=== PATIENT | female | born 1930 | race Caucasian/White ===

== ENCOUNTER 2017-10-17 09:15 | Inpatient (IN) | payer MEDICARE ==
[2017-10-17 10:12] LABS: #Basophils 0.1 thou/uL (0.0-0.2); #Eosinphils 0.2 thou/uL (0.0-0.7); #Lymphocytes 2.1 thou/uL (1.20-3.40); #Monocytes 0.9 thou/uL (0.11-0.59); %Basophils 0.7 % (0.0-1.0); %Lymphocytes 22.2 % (21.0-51.0); %Neutrophils 65.1 % (42.0-75.0); Mean Corpuscular Hemoglobin 30.4 pg (27.0-31.0); Mean Corpuscular Volume 89.5 fL (78.0-98.0); Mean Platelet Volume 8.7 fL (7.4-10.4); Platelet Count 249 thou/uL (130-400); RBC Distribution Width 13.8 % (11.5-14.5); Red Blood Cell (RBC) Count 4.94 mill/uL (4.20-5.40); White Blood Cell (WBC) Count 9.3 thou/uL (4.8-10.8)
--- NOTE | 2017-10-17 10:17 | RAD ---
PORTABLE CHEST 1 VIEW: DATE: 10/17/17. TIME: 10:06 a.m. HISTORY: Chest pain. FINDINGS/IMPRESSION: The heart size is borderline. There is a plate of linear atelectasis in the left mid lung laterally. The lungs are well expanded without lobar consolidation, pneumothoraces, zelalem pulmonary edema, or pleural effusions. POS: BRITTANIH
[2017-10-17 10:40] LABS: CKMB 0.6 ng/mL (0-6.6); Troponin I Less than 0.010 ng/mL (< 0.028)
[2017-10-17 11:25] LABS: Albumin 4.5 g/dL (3.4-4.8)
[2017-10-17 11:26] LABS: Calcium 10.3 mg/dL (7.8-10.44); Chloride 107 mmol/L (98-107); Magnesium 2.3 mg/dL (1.6-2.6); Potassium 3.8 mmol/L (3.5-5.1); Sodium 140 mmol/L (136-145)
[2017-10-17 11:27] LABS: Globulin 2.8 g/dL (2.4-3.5); Glucose 115 mg/dL (83-110); Protein, Total 7.3 g/dL (6.0-8.3)
[2017-10-17 11:29] LABS: Anion Gap 16 mmol/L (10-20); Carbon Dioxide 21 mmol/L (23-31)
[2017-10-17 11:30] LABS: Alkaline Phosphatase 86 U/L (40-150); Calc. Creatinine Clearance 0 mL/min (70-130); Estimated GFR-MDRD 57
[2017-10-17 11:31] LABS: BUN (Urea Nitrogen) 22 mg/dL (9.8-20.1)
[2017-10-17 11:32] LABS: AST (SGOT) 14 U/L (5-34)
[2017-10-17 11:33] LABS: ALT (SGPT) 13 U/L (8-55); CK (CPK) 34 U/L (29-168); Lipase 56 U/L (8-78)
--- NOTE | 2017-10-17 14:05 | HP-2 ---
DATE OF ADMISSION: 10/17/2017 CODE STATUS: DNR. Code status was discussed at length with the patient who is competent to make dec isions at this time. She expressed desire for no resuscitative measures to be taken in the event of cardiac or respiratory arrest. PRIMARY CARE PHYSICIAN: Dr. Darien Garcia at [facility]. RESIDENT: Smith Pandey M.D. ATTENDING PHYSICIAN: Lino Pizano M.D. CHIEF COMPLAINT: Back pain. HISTORY OF PRESENT ILLNESS: Ms. Aldana is a pleasant 87-year-old female with past medical history of hypertension, chronic back pain, irritable bowel syndrome. She presented from Dr. Rosanna weaver's office this morning with a report of elevated pulse. The patient states she was going for an epidural spinal injection to control her chronic back pain when she was found to have an elevated pul se. She explicitly denied shortness of breath, chest pain, palpitations, generalized weakness, nause a or vomiting. She states that she was seen by Dr. Ledezma approximately 4 years ago and had an ex tensive cardiac workup done at that time which was negative. She states that she has had an "abnorma l heart beat" since she was in the fifth grade. She states her chronic back pain is caused by a fall from standing she experienced when she was 19 years old and has been getting injections for the past 16 years. ER COURSE: The patient was seen and evaluated by Dr. James Finch. Routine labs were drawn including m agnesium, EKG and chest x-ray were obtained. She received diltiazem 20 mg IV push and started on a d iltiazem drip which was still being titrated in the ER at the time of my examination. She was receiv ing diltiazem at 10 mg per hour at the time of the examination. PAST MEDICAL HISTORY: 1. Irritable bowel syndrome. 2. Hypertension. 3. Chronic back pain. PAST SURGICAL HISTORY: 1. Appendectomy. 2. Nephrectomy. 3. Unspecified hand surgery. ALLERGIES: No known drug allergies. MEDICATIONS: The patient states she takes valsartan, diltiazem XLT and amlodipine. She does not kno w the dosing of her home medication. FAMILY HISTORY: She reports her father of a myocardial infarction at age 65 and her mother of Alzheimer's at 87 years old. SOCIAL HISTORY: The patient reports a remote 5-6 pack year smoking history, but states she quit torsten ral decades ago. She denies alcohol or illicit drug use. She states that her son lives with her in her home and that she is are able to achieve all ADLs and IADLs. REVIEW OF SYSTEMS GENERAL: Denies fevers or chills. EYES: Denies blurry vision, double vision. ENT: Denies sore throat, nasal congestion. NECK: Denies lumps or mass. CARDIOVASCULAR: Denies chest pain, palpitations or edema. PULMONARY: Denies shortness of breath or dyspnea on exertion. GASTROINTESTINAL: Denies nausea, vomiting, diarrhea, constipation. GENITOURINARY: Denies incontinence, dysuria. MUSCULOSKELETAL: Reports chronic back pain and left leg pain. NEUROLOGIC: Reports weakness secondary to pain. Denies numbness, tingling. SKIN: Denies suspicious lesions or rashes. PSYCHIATRIC: Denies anxiety, depression. PHYSICAL EXAMINATION: VITAL SIGNS: Blood pressure 149/128, pulse 135, respiratory rate 18, T-max 97.6 oral, pulse ox 97% o n room air, current weight 61.23 kilograms. GENERAL: No acute distress. Alert and oriented x4, appropriately interactive. HEENT: Normocephalic, atraumatic. PERRLA, EOMI. Conjunctivae within normal limits. External ears and nose grossly normal. Oropharynx reveals wheezing. Moist mucous membranes. Normal posterior donna pharynx, symmetric elevation of the soft palate. NECK: Supple, without lymphadenopathy, thyromegaly. CARDIOVASCULAR: Tachycardic rate, irregularly irregular rhythm. Pulses full and equal bilaterally. No murmurs, rubs or gallops appreciated. LUNGS: Clear to auscultation bilaterally without wheezes, rhonchi or rales. Normal respiratory effo rt. ABDOMEN: Soft, nontender to palpation. Bowel sounds present x4 quadrants. MUSCULOSKELETAL: Full range of motion of extremities. NEUROLOGIC: No focal deficits. Cranial nerves II-XII grossly intact. EXTREMITIES: No clubbing, cyanosis or edema. SKIN: Warm, dry, and intact without lesions. PSYCHIATRIC: Mood and affect are appropriate. The patient is capable of making her own decisions. LABORATORY DATA: 1. CBC: White blood cell count 9.3, hemoglobin 15.0, hematocrit 44.2, MCV 89.5, platelet count 249, neutrophils 65.1%. 2. CMP: Sodium 140, potassium 3.8, chloride 107, bicarbonate 21, BUN 22, creatinine 0.94, estimated GFR 57, glucose 115, calcium 10.3, magnesium 2.3, total bilirubin 1.0, AST 14, ALT 13, alkaline phos phatase 86. 3. Total protein 7.3, albumin 4.5, globulin 2.6. 4. Cardiac markers, CK-MB 0.6, troponin I less than 0.010. CPK 34, lipase 56, BNP 100.5, TSH 2.6901 . IMAGING: Chest x-ray, left-sided atelectasis, but otherwise unremarkable. EKG: Rate 120, rhythm atrial fibrillation with rapid ventricular response, no ST elevations or depre ssions, normal T-wave progression. QTC interval 472. ASSESSMENT AND PLAN: Ms. Aldana is an 87-year-old female with past medical history of hypertension, chronic back pain, IBS, and an unspecified heart palpitation. She presents with no cardiac complaint s, but was found to be in atrial fibrillation with rapid ventricular response. 1. Suspected new onset atrial fibrillation with rapid ventricular response. We will continue to tit rate diltiazem drip in the ER until pulse is less than 110 and will continue on the floor. We will n eed to perform medication reconciliation and determine the patient's home medication regimen. Cardio logy has been consulted for further recommendations. We will repeat troponin and CK-MB once she is o n the floor to monitor for signs of ischemia. Transthoracic echocardiogram has been ordered. We wi ll await further recommendations from Cardiology. A release of records form will be sent to Dr. Snow navarro's office to review previous evaluations. 2. Hypertension, medication reconciliation and home medications. 3. Chronic back pain. We will provide p.r.n. pain medications. 4. Diet: Heart healthy, regular. 5. Deep venous thrombosis prophylaxis, Lovenox. 6. Code status: DNR. Again, the patient was determined to be decisional and a detailed discussion was had with her regarding her code status. DISPOSITION/ESTIMATED LENGTH OF STAY: She is admitted under inpatient status placed on telemetry win g. Stay likely greater than 2 midnights. History and physical exam and management of this patient were discussed with Dr. Pizano who is in a greement unless otherwise stated in his note.
[2017-10-17] MEDS ORDERED: Bisacodyl 10 MG SUPP PR PRN (16:13)
[2017-10-17] MEDS ORDERED: Acetaminophen 650 MG Suppository PR PRN (16:13)
[2017-10-17] MEDS ORDERED: Acetaminophen 325 MG TAB PO PRN (16:13)
[2017-10-17] MEDS ORDERED: Ondansetron ODT 4 MG TAB PO PRN (16:13)
[2017-10-17] MEDS ORDERED: Diltiazem 125 MG in Sodium Chloride 0.9% 100 ML IVPB SCH ×2 (16:13→17:30)
[2017-10-17] MEDS ORDERED: Bisacodyl 5 MG TAB PO PRN (16:13)
[2017-10-17] MEDS ORDERED: Ondansetron HCl/PF 4 MG/2 ML Vial IVP PRN (16:13)
[2017-10-17] MEDS ORDERED: Enoxaparin Sodium 40 MG/0.4 ML SYRINGE SC SCH (16:45)
[2017-10-17 16:58] LABS: CKMB 0.6 ng/mL (0-6.6); Troponin I Less than 0.010 ng/mL (< 0.028)
[2017-10-17] MEDS: traMADol HCl 50 MG TAB PO PRN (17:26)
--- NOTE | 2017-10-17 18:04 | HP ---
I have discussed the case with Dr. Smith Pandey and agree with his assessment and plan. HISTORY OF PRESENT ILLNESS: Briefly, Ms. Aldana is a very pleasant 87-year-old white female, who was visiting her pain doctor today. When she went in, vital signs were taken. She was noted to have a heart rate of 140. She was sent to our ER where she was noted to be in atrial fibrillation with rapi d ventricular response. She denies any chest pain. She does state she has mild dyspnea on exertion. She is not dizzy. PHYSICAL EXAMINATION: VITAL SIGNS: Her blood pressure 146/80, heart rate is currently 140 and irregularly irregular. Her oxygen saturation is 97% on room air and she is afebrile. GENERAL: She is awake, alert, very pleasant, in no distress. Again, she denies any chest pain. ENT: Her thyroid is not enlarged. There were no carotid bruits. CARDIAC: The PMI is in the fifth intercostal space. Heart rhythm is irregular with a rate of 130-14 0. LUNGS: Breath sounds are slightly diminished, but clear without rales, rhonchi, or wheezes. ABDOMEN: Flat and soft, without guarding or rebound. EXTREMITIES: She has no edema. NEUROLOGIC: No focal deficits. LABORATORY DATA: I have been kicked out by the computer and cannot find my way back to this patient, so I will try to get that later. Her EKG does show atrial fibrillation with a rapid ventricular response. No acute changes noted. ASSESSMENT: Atrial fibrillation with rapid ventricular response. PLAN: Admit on diltiazem drip. Consult Cardiology. Check echo. Check TSH and proceed.
--- NOTE | 2017-10-17 19:02 | CON ---
DATE OF CONSULTATION: 10/17/2017 REASON FOR CONSULTATION: Atrial fibrillation. HISTORY OF PRESENT ILLNESS: Ms. Aldana is a pleasant 87-year-old woman who is a patient who has been seen and evaluated by Dr. Ledezma 4 years ago. She recently presented for a back injection and was found to be tachycardic. She was found to be in AFib with RVR. She therefore proceeded to [facility] emergency room. She has no current symptoms. No chest pain or pressure, lightheadedness, syncope or presyncope. She has no previous history of atrial fibrillation. PAST MEDICAL HISTORY: Hypertension, chronic low back pain. PAST SURGICAL HISTORY: Appendectomy, nephrectomy, hand surgery. ALLERGIES: None. MEDICATIONS: Valsartan, diltiazem and amlodipine. SOCIAL HISTORY: No current tobacco or alcohol use. REVIEW OF SYSTEMS: A 10-point review of systems is reviewed and is as above, otherwise negative. PHYSICAL EXAMINATION: GENERAL: Patient is a pleasant female who is in no acute distress. The patient appears her stated a ge. VITAL SIGNS: Blood pressure 138/76, respiratory rate 16, pulse 122. NEUROLOGIC: The patient is alert and oriented times 3 with no focal neurologic deficits. HEENT: Sclerae without icterus. Mouth has moist mucous membranes with normal pallor. NECK: No JVD. Carotid upstroke brisk. No bruits bilaterally. LUNGS: Clear to auscultation with unlabored respirations. BACK: No scoliosis or kyphosis. CARDIAC: Irregularly irregular. ABDOMEN: Soft, nontender, nondistended. No peritoneal signs present. No hepatosplenomegaly. No ab normal striae. EXTREMITIES: 2+ femoral and 2+ dorsalis pedis pulses. No cyanosis, clubbing, or edema. SKIN: No gross abnormalities. PERTINENT LABS: Hemoglobin 15, creatinine 0.94, BNP of 100. IMPRESSION: Atrial fibrillation with rapid ventricular response. RECOMMENDATIONS: 1. Continue IV Cardizem. 2. Add Lovenox q.12. 3. Continue p.o. Cardizem at 240 with first dose now. We will increase to 360 q.a.m. if heart rate is not better controlled. 4. Consider adding beta grabiel therapy. 5. We will review echo with Doppler. Plan is to recommend rate control. She has no current symptoms and may benefit from a rate control s trategy.
[2017-10-17] MEDS ORDERED: Prevnar 13-Val Conj/PF 0.5 ML SYRINGE IM ONE (21:00)
[2017-10-18 05:07] VITALS: BMI 25.6
--- NOTE | 2017-10-18 05:25 | PDOC.FM ---
- Subjective Subjective: NAEO. Patient states she feels well this AM. Denies any CP, palpitations, SOB, lightheadedness, N/V/D, or constipation. States she is "allergic to hospitals" and would like to go home later today. Is aware of why cardiology wants and Echo today though and would like to stay to complete that test only. - Objective MAR Reviewed: Yes Vital Signs & Weight: Vital Signs (12 hours) Temp Pulse Resp BP BP Pulse Ox 10/18/17 03:26 97.9 F 67 14 109/55 L 92 L 10/17/17 23:49 97.6 F 72 17 141/65 H 97 10/17/17 20:15 98 10/17/17 20:00 98.1 F 52 L 16 121/58 L 98 Weight Weight 65.408 kg I&O: 10/16/17 10/17/17 10/18/17 06:59 06:59 06:59 Intake Total 290 Output Total 225 Balance 65 Result Diagrams: 10/17/17 10:05 10/17/17 11:03 <Nery Rincon - Last Filed: 10/18/17 08:41> - Objective Vital Signs & Weight: Vital Signs (12 hours) Temp Pulse Resp BP BP Pulse Ox 10/18/17 07:45 96 10/18/17 07:42 97.9 F 77 16 130/60 96 10/18/17 03:26 97.9 F 67 14 109/55 L 92 L 10/17/17 23:49 97.6 F 72 17 141/65 H 97 Weight Weight 65.408 kg I&O: 10/17/17 10/18/17 10/19/17 06:59 06:59 06:59 Intake Total 290 Output Total 225 Balance 65 Result Diagrams: 10/17/17 10:05 10/17/17 11:03 <Rayo Kimbrough - Last Filed: 10/18/17 11:43> Phys Exam - Physical Examination Constitutional: NAD HEENT: moist MMs, sclera anicteric Neck: supple, full ROM Respiratory: no wheezing, no rales, no rhonchi, clear to auscultation bilateral Cardiovascular: no significant murmur irregularly irregular rate and rhythm Gastrointestinal: soft, non-tender, no distention, positive bowel sounds Musculoskeletal: pulses present, edema present (mild nonpitting edema in B/L feet) Neurological: non-focal, moves all 4 limbs Psychiatric: normal affect, A&O x 3 Skin: no rash, normal turgor <Nery Rincon - Last Filed: 10/18/17 08:41> Dx/Plan (1) Atrial fibrillation with rapid ventricular response Code(s): I48.91 - UNSPECIFIED ATRIAL FIBRILLATION Status: Acute (2) HTN (hypertension) Code(s): I10 - ESSENTIAL (PRIMARY) HYPERTENSION Status: Chronic (3) Chronic back pain Code(s): M54.9 - DORSALGIA, UNSPECIFIED; G89.29 - OTHER CHRONIC PAIN Status: Chronic (4) IBS (irritable bowel syndrome) Status: Chronic - Plan Plan: Patient is a 87YOF w/ a PMH significant for HTN who presented to the ED after being found to be tachycardic at her pain clinic physician's office and was found to be in atrial fibrillation with RVR. 1. Presumed New-onset atrial fibrillation w/ RVR: - Patient was started on a diltiazem drip in the ED @ 10mL/hr which was discontinued overnight. - Will start on 360mg PO dilt QAM & lovenox BID per cards recs. - Will restart home BP meds and consider adding a BB for better rate control. - TTE to be done today and reviewed by cards. Will await further recs regarding need for chronic anticoagulation therapy. - TSH WNL. - Cards records from Dr. Ledezma pending. 2. HTN: - Aware, will resume home meds today. - Will consider adding BB therapy for better rate control per cards recommendation as well. 3. Chronic back pain: - Aware, will continue tylenol & home dose of tylenol #3 for pain control. 4. h/o IBS: - Aware, will manage symptoms while in hospital should they occur. <Nery Rincon - Last Filed: 10/18/17 08:41> Attending Addendum - Attending Addendum Date/Time: 10/18/17 [id number] I personally evaluated the patient and discussed the management with Dr. Rincon. I agree with the History, Examination, Assessment and Plan documented above with any addition or exceptions noted below. Patient doing well. She is rate controlled on escalated Diltiazem therapy and feels well. She is requesting discharge. Per her report, cardiology has cleared her for further workup outpatient. We will confirm that and discharge her home if so as she appears medically stable at this time. <Rayo Kimbrough - Last Filed: 10/18/17 11:43>
[2017-10-18] MEDS ORDERED: Acetaminophen/Codeine 30-300mg Tablet PO PRN (05:31)
[2017-10-18] MEDS: traMADol HCl 50 MG TAB PO PRN (08:02)
[2017-10-18] MEDS ORDERED: Prevnar 13-Val Conj/PF 0.5 ML SYRINGE IM ONE (09:00)
[2017-10-18] MEDS ORDERED: Enoxaparin Sodium 40 MG/0.4 ML SYRINGE SC SCH ×2 (09:00)
[2017-10-18] MEDS ORDERED: Hydrochlorothiazide 25 MG TAB PO SCH (09:00)
[2017-10-18] MEDS ORDERED: Amlodipine 10 MG TAB PO SCH (09:00)
[2017-10-18] MEDS ORDERED: Valsartan 80 MG TAB PO SCH (09:00)
[2017-10-18] MEDS ORDERED: Non-Formulary Item 1 EACH (Valsartan/Hydrochlorothiazide [Valsartan-Hctz 320-25 Mg Tab] 1 PO SCH (09:00)
[2017-10-18 12:28] VITALS: BP 127/60; TEMP 97.6
--- NOTE | 2017-10-18 12:32 | PRG ---
DATE OF SERVICE: 10/18/2017 SUBJECTIVE: Ms. Aldana is doing well. Her rate is controlled off IV Cardizem. She is currently on Cardizem 240 q.a.m. She would like to go home. She has no current complaints. PHYSICAL EXAMINATION: VITAL SIGNS: 130/60, pulse 77, temperature 97.9. LUNGS: Clear to auscultation. HEART: Irregularly irregular. ABDOMEN: Soft, nontender, nondistended. EXTREMITIES: No edema. IMPRESSION: 1. New onset atrial fibrillation. 2. Chronic back pain. RECOMMENDATIONS: 1. Would continue Cardizem at 240 q.a.m. 2. I have discussed the risks and benefits of anticoagulation therapy. She has had bleeding uterine mass in the last 16 years, although nothing recurrent. I did talk about the risks and benefits of a nticoagulation treatment. At this point, we would like to challenge Ms. Aldana given risk of CVA. I discussed the risks and benefits. Would add Eliquis 5 mg b.i.d. I did state she needs to stop the Eliquis 5 days prior to any back injections. Plan is to follow up with Ms. Aldana in the office in the next week.
--- NOTE | 2017-10-19 04:03 | DIS-2 ---
DATE OF ADMISSION: 10/17/2017 DATE OF DISCHARGE: 10/18/2017 RESIDENT: Dr. Nery Rincon. ADMITTING ATTENDING: Dr. Lino Pizano. DISCHARGE ATTENDING: Rayo Kimbrough MD CONSULTATIONS: Cardiology, Dr. Nito Orr. PROCEDURES: Chest x-ray significant for a plate of linear atelectasis in the mid left lung laterally , borderline heart size well-expanded lungs without lobar consolidation, pneumothoraces, zelalem pulmon chuck edema, or pleural effusions. PRIMARY DIAGNOSIS: New-onset atrial fibrillation with rapid ventricular response. SECONDARY DIAGNOSES: 1. Hypertension. 2. Irritable bowel syndrome. 3. Chronic back pain. DISCHARGE MEDICATIONS: 1. Diltiazem hydrochloride 240 mg p.o. daily. 2. Norvasc 10 mg p.o. daily. 3. Tylenol with Codeine No. 3 300 mg/30 mg 1 tab p.o. every 6 hours p.r.n. 4. Valsartan/hydrochlorothiazide one tab p.o. daily. 5. Eliquis 5 mg p.o. b.i.d. DISCONTINUED MEDICATIONS: None. HOSPITAL COURSE: Patient is an 87-year-old female with past medical history significant for hyperten jong who presented to the ED with a chief complaint of back pain and was subsequently found to be in atrial fibrillation with rapid ventricular rate. Her heart rate reaching as high as 150s. In the ED , routine labs were drawn including magnesium. A chest x-ray was obtained, which was negative for an y acute cardiopulmonary findings. Patient's magnesium level was within normal limits at 2.3. Tropon ins were also drawn, which were negative x2 as well as CK-MB. BNP was slightly elevated at 100.5. T SH was within normal limits of 2.69. Due to rapid ventricular rate, the patient was given diltiazem 20 mg IV push and started on a diltiazem drip initially titrated at a rate of 10 mg per hour. The otoniel winn was then transferred to telemetry for observation overnight. Soon after her transfer to the [facility], the patient's rate normalized. It came down as low as 52 beats per minute, the diltiazem drip w as therefore discontinued per Cardiology. Once the patient reached the floor, manufacturing technology professor, Dr. Jenna Orr was consulted and evaluated the patient. Dr. Orr's initial evaluation, the patie nt prior to stopping the diltiazem drip, he recommended increasing her daily diltiazem dose to 360 mg daily and starting her on prophylactic Lovenox b.i.d. rather than 1 time daily. He also recommended obtaining an echo and possibly adding a beta grabiel to her hypertensive therapy. However, after ev aluating the patient the next day and seeing that her rate was well controlled long after discontinui ng the Cardizem drip. He recommended she would be discharged home on her current dose of Cardizem at 240 mg daily, but also recommended she initiate daily oral anticoagulation therapy with Eliquis 5 mg b.i.d. The patient agreed to starting oral anticoagulation and agreed to follow up with Dr. Ian stephens in 1 week upon discharge. DISPOSITION: Stable. DISCHARGE INSTRUCTIONS: 1. Location: Home. 2. Diet: Heart-healthy diet. 3. Activity: As tolerated. No restrictions. 4. Followup: Patient was instructed to follow up with Dr. Nito Orr within 1 week of discha rge as well as her primary care provider within 1 week of discharge.
== END 2017-10-18 12:55 | disposition home or self-care (01) | DRG 310 ==
LOC: ERS 09:15 → 2NO 12:20
PROVIDERS: ADMIT Student in an Organized Health Care Education/Training Program; ATTEND Student in an Organized Health Care Education/Training Program
DX: I48.91 Unspecified atrial fibrillation (principal); Z66 Do not resuscitate; I10 Essential (primary) hypertension; G89.29 Other chronic pain; Z87.891 Personal history of nicotine dependence; K58.9 Irritable bowel syndrome, unspecified
CPT/HCPCS: 36415; 71045; 80053; 82553; 83690; 83735; 83880; 84443; 84484; 85025; 90471; 90670; 93005; 96365; 96366; 96376; G0009; J1650; J7050